=== PATIENT | female | born 1940 | race African-American/Black ===

== ENCOUNTER → 2019-03-10 | Outpatient (CLI) | payer MEDICARE, MEDICAID, OTHER ==
[2019-03-10 15:28] LABS: APPEARANCE,URINE TURBID (CLEAR); BILIRUBIN,URINE NEGATIVE (NEGATIVE); GLUCOSE, URINE (UA) NEGATIVE (NEGATIVE); KETONES,URINE NEGATIVE (NEGATIVE); LEUKOCYTE ESTERASE ,URINE LARGE (NEGATIVE); OCCULT BLOOD,URINE SMALL (NEGATIVE); PH,URINE 5.5 (5.0-8.0); PROTEIN,URINE TRACE (NEGATIVE); UROBILINOGEN,URINE 0.2 mg/dL (<=1.0)
[2019-03-10 15:40] LABS: BACTERIA,URINE Many /HPF (None Seen); NITRATE,URINE POSITIVE (NEGATIVE); SQUAMOUS EPITHELIAL CELL,UR Few /LPF (None Seen); WBC,URINE >100 /HPF (0-5)
== END | disposition home or self-care (01) ==
LOC: PUC 14:32
PROVIDERS: ATTEND Nurse Practitioner
DX: R10.9 Unspecified abdominal pain (principal); M54.5 Low back pain; R30.9 Painful micturition, unspecified
CPT/HCPCS: 87086